=== PATIENT | male | born 1970 | race Two or more races ===

== ENCOUNTER 2020-11-17 18:09 | Emergency (ER) | payer OTHER ==
[~2020-11-17] VITALS: Ht 170.2 cm; Wt 101.2 kg
[2020-11-17 18:18] VITALS: BP 115/72
[2020-11-17] MEDS ORDERED: FLUORESCEIN OPTH STRIP 1 MG OP ONE (18:35)
[2020-11-17] MEDS ORDERED: TETRACAINE HCL/PF 0.5% OPTH 4 ML BTL OP ONE (18:45)
[2020-11-17] MEDS ORDERED: ERYT2GEL22 TP (18:58)
[2020-11-17] MEDS ORDERED: [UNRECOGNIZED DRUG - CODE] RIGHT EYE (18:58)
[2020-11-17] MEDS ORDERED: DOXY100T9 PO (18:58)
[2020-11-17 19:20] VITALS: BP 115/72
== END 2020-11-17 19:20 | disposition home or self-care (01) ==
LOC: MED 18:09
DX: R21 Rash and other nonspecific skin eruption (principal); H00.013 Hordeolum externum right eye, unspecified eyelid; Z79.899 Other long term (current) drug therapy
CPT/HCPCS: 99283